=== PATIENT | male | born 1980 | race Caucasian/White ===

== ENCOUNTER 2019-05-14 08:52 | Emergency (ER) | payer MEDICAID ==
[~2019-05-14] VITALS: Ht 170.2 cm; Wt 73.0 kg
[2019-05-14 09:02] VITALS: Ht 170.2 cm; Wt 73.0 kg
[2019-05-14 09:40] LABS: CALCIUM 8.5 mg/dL (8.5-10.1); CARBON DIOXIDE 29.3 mmol/L (21-32); CHLORIDE SERUM 102 mmol/L (98-107); GFR1 > 60 mL/min; GLUCOSE SERUM 142 mg/dL (74-106); POTASSIUM SERUM 4.8 mmol/L (3.5-5.1); SODIUM SERUM 138 mmol/L (136-145)
[2019-05-14 09:43] LABS: ALKALINE PHOSPHATASE 101 U/L (46-116); ALT/SGPT 34 U/L (16-63); AMYLASE 53 U/L (25-115); AST/SGOT 16 U/L (15-37); BILIRUBIN TOTAL 0.8 mg/dL (0.20-1.00); LIPASE 146 IU/L (73-393); TOTAL PROTEIN, SERUM 7.6 g/dL (6.4-8.2)
[2019-05-14 09:58] LABS: BASOPHIL % 0.4 % (0-2); PLATELET COUNT 256 x10^3mcL (130-400); RED CELL DISTRIBUTION WIDTH 12.3 % (11.5-14.5)
[2019-05-14 12:50] VITALS: BP 124/76
== END 2019-05-14 12:50 | disposition home or self-care (01) ==
LOC: ED 08:52
PROVIDERS: Specialist
DX: R10.33 Periumbilical pain (principal); K59.00 Constipation, unspecified
CPT/HCPCS: 36415; J1885

== ENCOUNTER 2019-05-16 15:20 | Emergency (ER) | payer MEDICAID ==
[~2019-05-16] VITALS: Ht 170.2 cm; Wt 73.0 kg
[2019-05-16 15:27] VITALS: Ht 170.2 cm; Wt 73.0 kg
[2019-05-16 15:56] LABS: BASOPHIL % 0.9 % (0-2); PLATELET COUNT 281 x10^3mcL (130-400); RED CELL DISTRIBUTION WIDTH 12.4 % (11.5-14.5)
[2019-05-16 15:59] LABS: CALCIUM 8.4 mg/dL (8.5-10.1); CARBON DIOXIDE 27.5 mmol/L (21-32); CHLORIDE SERUM 101 mmol/L (98-107); CREATININE SERUM 1.2 mg/dL (0.7-1.3); GFR1 > 60 mL/min; GLUCOSE SERUM 183 mg/dL (74-106); POTASSIUM SERUM 4.5 mmol/L (3.5-5.1); SODIUM SERUM 139 mmol/L (136-145)
[2019-05-16 16:05] LABS: ALBUMIN 4.1 g/dL (3.4-5.0); ALKALINE PHOSPHATASE 95 U/L (46-116); ALT/SGPT 29 U/L (16-63); AST/SGOT 12 U/L (15-37); BILIRUBIN TOTAL 0.48 mg/dL (0.20-1.00); LIPASE 144 IU/L (73-393); TOTAL PROTEIN, SERUM 7.8 g/dL (6.4-8.2)
[2019-05-16 17:48] LABS: microscopic required? NO
[2019-05-16 18:05] LABS: urine erythrocyte NEGATIVE (NEGATIVE)
[2019-05-16 19:44] VITALS: BP 123/81
== END 2019-05-16 19:44 | disposition home or self-care (01) ==
LOC: ED 15:20
PROVIDERS: Emergency Medicine
DX: K59.00 Constipation, unspecified (principal)
CPT/HCPCS: 36415; J0500